=== PATIENT | female | born 1930 | race Caucasian/White ===

== ENCOUNTER 2016-08-24 15:11 | Inpatient (IN) | payer MEDICARE, BC ==
[2016-08-24] MEDS ORDERED: COREG12.5 M1 PO (15:43)
[2016-08-24] MEDS ORDERED: CELEXA20 M2 PO (15:44)
[2016-08-24] MEDS ORDERED: CATAPRES0.1 M1 PO (15:45)
[2016-08-24] MEDS ORDERED: WELCHOL625 M1 PO (15:45)
[2016-08-24] MEDS ORDERED: DIPHENOXYLAT-AT60 ML PO (15:46)
[2016-08-24] MEDS ORDERED: FEOSOL325 M1 PO (15:47)
[2016-08-24] MEDS ORDERED: FUROSEMIDE40 M2 PO (15:47)
[2016-08-24] MEDS ORDERED: COZAAR100 M1 PO (15:48)
[2016-08-24] MEDS ORDERED: PROTONIX40 M2 PO (15:49)
[2016-08-24] MEDS ORDERED: MYSOLINE50 M3 PO (15:50)
[2016-08-24] MEDS ORDERED: COUMADIN7.5 M1 PO (15:51)
[2016-08-24] MEDS ORDERED: PROMETHAZINE-C118 ML PO (15:51)
[2016-08-24] MEDS ORDERED: AMBIEN10 M1 PO (15:52)
[2016-08-24 19:12] LABS: BASO % 0.2 % (0-2); EOS % 0.2 % (0-7); HCT-HEMATOCRIT 28.7 % (34.0-49.0); IMMATURE GRANULOCYTES ABSOLUTE 0.05 tho/cmm (0-0.03); IMMATURE GRANULOCYTES PERCENT 0.5 % (0-0.3); LYMPH % 7.5 % (20-45); LYMPH ABSOLUTE COUNT 0.8 tho/cmm (0.8-4.5); MCH (MEAN CORPUSCULAR HGB) 28.9 pg (28.0-32.0); MCHC MEAN CORPUSCULAR HGB CONC 31.4 % (32.0-36.0); MCV (MEAN CELL VOLUME) 92.3 fl (82.0-96.0); MEAN PLATELET VOLUME 9.8 cmc (9.4-12.4); MONO % 6.4 % (0-12); MONOCYTE ABSOLUTE COUNT 0.7 tho/cmm (0.0-1.2); NEUTROPHIL ABSOLUTE COUNT 9.5 tho/cmm (1.6-8.0); NEUTROPHIL-AUTOMATED 9.5 tho/cmm (1.6-8.0); NEUTROPHILS % 85.2 % (40-80); PLATELET COUNT 86 tho/cmm (150-450); RED BLOOD COUNT 3.11 mil/cmm (4.00-5.20); RED CELL DISTRIBUTION WIDTH 22.1 % (12.4-16.4); WHITE BLOOD COUNT 11.1 tho/cmm (4.0-10.0)
[2016-08-24 19:18] LABS: INR 2.5 INR (0.9-1.1); PROTHROMBIN TIME 29.5 SECONDS (9.0-13.6)
[2016-08-24 19:26] LABS: ANION GAP 11 mmol/L (0-20); BLOOD UREA NITROGEN 23 mg/dl (6-24); C-REACTIVE PROTEIN 2.4 mg/dl (0-0.9); CALCIUM 7.6 mg/dl (8.5-10.5); CARBON DIOXIDE-VENOUS 26 mmol/L (22-32); CHLORIDE 105 mmol/l (96-110); CREATININE 1.25 mg/dl (0.50-1.10); GLUCOSE 131 mg/dL (70-110); POTASSIUM 3.8 mmol/L (3.7-5.1); SODIUM 138 mmol/L (135-145); eGFR VALUE FOR BLACK 45 mL/Min
[2016-08-24 20:40] LABS: URINE APPEARANCE CLOUDY; URINE BILIRUBIN NEGATIVE (NEG); URINE BLOOD LARGE (NEG); URINE COLOR YELLOW; URINE GLUCOSE (UA) NEGATIVE (NEG); URINE KETONE NEGATIVE (NEG); URINE LEUKOCYTE ESTERASE POSITIVE (NEG); URINE NITRITE NEGATIVE (NEG); URINE PROTEIN MODERATE (NEG)
[2016-08-24 20:47] LABS: URINE EPITHELIAL CELLS 0-2 /[HPF] (0-10); URINE WBC 20-25 /[HPF] (0-5)
[2016-08-24 21:48] LABS: ALB/GLOB RATIO 0.8 (0.8-2.0); ALBUMIN 2.8 g/dl (3.5-5.0); ALKALINE PHOSPHATASE 234 U/L (33-138); ALT/SGPT 151 U/L (12-78); AST/SGOT 314 U/L (10-40); BILIRUBIN,DIRECT <0.1 mg/dl (0.0-0.3); BILIRUBIN,INDIRECT 0.2 mg/dL (0.0-1.0); BILIRUBIN,TOTAL 0.3 mg/dl (0-1.5); C-REACTIVE PROTEIN 2.7 mg/dl (0-0.9); INR 2.4 INR (0.9-1.1); PROTHROMBIN TIME 28.6 SECONDS (9.0-13.6)
[2016-08-24 21:52] LABS: TSH-THYROID STIMULATING HORM. 4.51 uIU/ml (0.40-3.80)
[2016-08-25 04:16] LABS: BASO % 0.2 % (0-2); EOS % 0.3 % (0-7); HCT-HEMATOCRIT 30.3 % (34.0-49.0); HGB-HEMOGLOBIN 9.5 gm/dl (12.0-15.5); IMMATURE GRANULOCYTES ABSOLUTE 0.07 tho/cmm (0-0.03); IMMATURE GRANULOCYTES PERCENT 0.8 % (0-0.3); LYMPH % 15.2 % (20-45); LYMPH ABSOLUTE COUNT 1.4 tho/cmm (0.8-4.5); MCH (MEAN CORPUSCULAR HGB) 28.8 pg (28.0-32.0); MCHC MEAN CORPUSCULAR HGB CONC 31.4 % (32.0-36.0); MCV (MEAN CELL VOLUME) 91.8 fl (82.0-96.0); MEAN PLATELET VOLUME 9.6 cmc (9.4-12.4); MONO % 10.4 % (0-12); MONOCYTE ABSOLUTE COUNT 0.9 tho/cmm (0.0-1.2); NEUTROPHIL ABSOLUTE COUNT 6.6 tho/cmm (1.6-8.0); NEUTROPHIL-AUTOMATED 6.6 tho/cmm (1.6-8.0); NEUTROPHILS % 73.1 % (40-80); PLATELET COUNT 85 tho/cmm (150-450); RED CELL DISTRIBUTION WIDTH 22.2 % (12.4-16.4)
[2016-08-25 05:02] LABS: BLOOD UREA NITROGEN 20 mg/dl (6-24); CALCIUM 8.1 mg/dl (8.5-10.5); CARBON DIOXIDE-VENOUS 20 mmol/L (22-32); CHLORIDE 105 mmol/l (96-110); CREATININE 1.12 mg/dl (0.50-1.10); GLUCOSE 87 mg/dL (70-110); SODIUM 135 mmol/L (135-145); eGFR VALUE FOR BLACK 51 mL/Min
[2016-08-25 05:03] LABS: ANION GAP 14 mmol/L (0-20); C-REACTIVE PROTEIN 4.9 mg/dl (0-0.9)
[2016-08-25 05:04] LABS: POTASSIUM 4.4 mmol/L (3.7-5.1)
[2016-08-25 05:23] LABS: PROTHROMBIN TIME 23.5 SECONDS (9.0-13.6)
[2016-08-25 07:56] LABS: INR 1.6 INR (0.9-1.1)
[2016-08-25 08:03] LABS: PROTHROMBIN TIME 18.8 SECONDS (9.0-13.6)
[2016-08-25 11:26] LABS: INR 1.4 INR (0.9-1.1); PROTHROMBIN TIME 16.1 SECONDS (9.0-13.6)
[2016-08-26 05:57] LABS: BASO % 0.1 % (0-2); EOS % 0.4 % (0-7); EOSINOPHIL ABSOLUTE COUNT 0.1 tho/cmm (0.0-0.7); HGB-HEMOGLOBIN 8.1 gm/dl (12.0-15.5); IMMATURE GRANULOCYTES ABSOLUTE 0.11 tho/cmm (0-0.03); LYMPH % 9.6 % (20-45); LYMPH ABSOLUTE COUNT 1.1 tho/cmm (0.8-4.5); MCH (MEAN CORPUSCULAR HGB) 28.9 pg (28.0-32.0); MCHC MEAN CORPUSCULAR HGB CONC 31.2 % (32.0-36.0); MCV (MEAN CELL VOLUME) 92.9 fl (82.0-96.0); MEAN PLATELET VOLUME 9.6 cmc (9.4-12.4); MONO % 9.7 % (0-12); MONOCYTE ABSOLUTE COUNT 1.1 tho/cmm (0.0-1.2); NEUTROPHILS % 79.2 % (40-80); PLATELET COUNT 86 tho/cmm (150-450); RED CELL DISTRIBUTION WIDTH 22.9 % (12.4-16.4); WHITE BLOOD COUNT 11.4 tho/cmm (4.0-10.0)
[2016-08-26 05:58] LABS: INR 1.1 INR (0.9-1.1); PROTHROMBIN TIME 13.1 SECONDS (9.0-13.6)
[2016-08-26 06:10] LABS: ALB/GLOB RATIO 0.7 (0.8-2.0); ALBUMIN 2.5 g/dl (3.5-5.0); ALKALINE PHOSPHATASE 158 U/L (33-138); ANION GAP 12 mmol/L (0-20); BILIRUBIN,TOTAL 0.2 mg/dl (0-1.5); BLOOD UREA NITROGEN 21 mg/dl (6-24); CALCIUM 7.8 mg/dl (8.5-10.5); CARBON DIOXIDE-VENOUS 25 mmol/L (22-32); CHLORIDE 103 mmol/l (96-110); GLUCOSE 103 mg/dL (70-110); POTASSIUM 4.2 mmol/L (3.7-5.1); SODIUM 136 mmol/L (135-145)
[2016-08-26 06:20] LABS: ALT/SGPT 42 U/L (12-78); AST/SGOT 60 U/L (10-40); CREATININE 1.47 mg/dl (0.50-1.10); eGFR VALUE FOR BLACK 37 mL/Min
[2016-08-27 05:02] LABS: BASO % 0.1 % (0-2); EOS % 0.5 % (0-7); EOSINOPHIL ABSOLUTE COUNT 0.1 tho/cmm (0.0-0.7); HGB-HEMOGLOBIN 7.3 gm/dl (12.0-15.5); IMMATURE GRANULOCYTES ABSOLUTE 0.06 tho/cmm (0-0.03); IMMATURE GRANULOCYTES PERCENT 0.6 % (0-0.3); LYMPH % 12.6 % (20-45); LYMPH ABSOLUTE COUNT 1.3 tho/cmm (0.8-4.5); MCH (MEAN CORPUSCULAR HGB) 29.2 pg (28.0-32.0); MCHC MEAN CORPUSCULAR HGB CONC 31.7 % (32.0-36.0); MEAN PLATELET VOLUME 9.5 cmc (9.4-12.4); MONO % 11.3 % (0-12); MONOCYTE ABSOLUTE COUNT 1.1 tho/cmm (0.0-1.2); NEUTROPHIL ABSOLUTE COUNT 7.5 tho/cmm (1.6-8.0); NEUTROPHIL-AUTOMATED 7.5 tho/cmm (1.6-8.0); NEUTROPHILS % 74.9 % (40-80); PLATELET COUNT 88 tho/cmm (150-450); RED CELL DISTRIBUTION WIDTH 23.2 % (12.4-16.4)
[2016-08-27 05:05] LABS: INR 1.2 INR (0.9-1.1); PROTHROMBIN TIME 13.5 SECONDS (9.0-13.6)
[2016-08-28 05:21] LABS: BASO % 0.2 % (0-2); EOS % 0.4 % (0-7); HCT-HEMATOCRIT 26.2 % (34.0-49.0); HGB-HEMOGLOBIN 8.4 gm/dl (12.0-15.5); IMMATURE GRANULOCYTES ABSOLUTE 0.04 tho/cmm (0-0.03); IMMATURE GRANULOCYTES PERCENT 0.4 % (0-0.3); MCH (MEAN CORPUSCULAR HGB) 29.4 pg (28.0-32.0); MCHC MEAN CORPUSCULAR HGB CONC 32.1 % (32.0-36.0); MCV (MEAN CELL VOLUME) 91.6 fl (82.0-96.0); MEAN PLATELET VOLUME 9.5 cmc (9.4-12.4); MONOCYTE ABSOLUTE COUNT 1.1 tho/cmm (0.0-1.2); NEUTROPHIL ABSOLUTE COUNT 7.1 tho/cmm (1.6-8.0); NEUTROPHIL-AUTOMATED 7.1 tho/cmm (1.6-8.0); PLATELET COUNT 102 tho/cmm (150-450); RED BLOOD COUNT 2.86 mil/cmm (4.00-5.20); WHITE BLOOD COUNT 9.4 tho/cmm (4.0-10.0)
[2016-08-28 05:24] LABS: INR 1.3 INR (0.9-1.1); PROTHROMBIN TIME 15.3 SECONDS (9.0-13.6)
[2016-08-28 05:35] LABS: ANION GAP 11 mmol/L (0-20); BLOOD UREA NITROGEN 24 mg/dl (6-24); CARBON DIOXIDE-VENOUS 27 mmol/L (22-32); CHLORIDE 106 mmol/l (96-110); CREATININE 1.16 mg/dl (0.50-1.10); GLUCOSE 97 mg/dL (70-110); POTASSIUM 4.6 mmol/L (3.7-5.1); SODIUM 139 mmol/L (135-145); eGFR VALUE FOR BLACK 49 mL/Min
[2016-08-28] MEDS ORDERED: ULTRAM50 M1 PO (09:36)
[2016-08-28] MEDS ORDERED: TYLENOL325 M2 PO (09:37)
== END 2016-08-28 10:40 | disposition swing bed (61) | DRG 470 ==
LOC: 5EB 15:11 → ORE 08-25 13:35 → PACU 08-25 16:00 → 5EB 08-25 16:50
PROVIDERS: Family Medicine; Physician Assistant Surgical; ADMIT Orthopaedic Surgery Foot and Ankle Surgery
PROC: 0SRB029 Replacement of Left Hip Joint with Metal on Polyethylene Synthetic Substitute, Cemented, Open Approach (ICD-10-PCS; principal; 2016-08-25)
DX: S72.012A Unspecified intracapsular fracture of left femur, initial encounter for closed fracture (principal); I48.91 Unspecified atrial fibrillation; D64.9 Anemia, unspecified; I10 Essential (primary) hypertension; Z95.4 Presence of other heart-valve replacement; W19.XXXA Unspecified fall, initial encounter; Z79.01 Long term (current) use of anticoagulants
CPT/HCPCS: C1776; C8929; J0171; J0690; J0696; J1650; J2270; J2795; J3430; J7030; J7050; P9016; P9017